=== PATIENT | male | born 1985 | race Two or more races ===

== ENCOUNTER 2021-06-07 21:46 | Emergency (ER) | payer OTHER ==
[~2021-06-07] VITALS: Ht 167.6 cm; Wt 68.0 kg
== END 2021-06-08 22:18 | disposition home or self-care (01) ==
LOC: ER 21:46
DX: R53.81 Other malaise (principal); Z20.822 Contact with and (suspected) exposure to COVID-19; F19.20 Other psychoactive substance dependence, uncomplicated

== ENCOUNTER → 2021-09-10 | Emergency (ER) | payer OTHER ==
[~2021-09-10] VITALS: Ht 167.6 cm; Wt 63.0 kg
== END | disposition home or self-care (01) ==
LOC: ER 12:33
DX: T25.122A Burn of first degree of left foot, initial encounter (principal); T25.121A Burn of first degree of right foot, initial encounter; X08.8XXA Exposure to other specified smoke, fire and flames, initial encounter; Y93.89 Activity, other specified; Y92.89 Other specified places as the place of occurrence of the external cause; M79.672 Pain in left foot; M79.671 Pain in right foot

== ENCOUNTER 2022-04-07 10:48 | Emergency (ER) | payer OTHER ==
[~2022-04-07] VITALS: Ht 165.1 cm; Wt 66.7 kg
== END 2022-04-07 13:43 | disposition left against medical advice (07) ==
LOC: ER 10:48
DX: Z53.21 Procedure and treatment not carried out due to patient leaving prior to being seen by health care provider (principal)

== ENCOUNTER 2023-07-07 14:56 | Inpatient (IN) | payer OTHER ==
[~2023-07-07] VITALS: Ht 170.2 cm; Wt 72.6 kg
[2023-07-07] MEDS ORDERED: KETOROLAC TROMETHAMINE 30 MG VIAL IV ONE (16:00)
[2023-07-07] MEDS ORDERED: 0.9 % SODIUM CHLORIDE 1,000 ML IV ONE ×2 (16:00→18:15)
[2023-07-07 16:52] LABS: HEMATOCRIT 38.8 % (39.0-48.0); HEMOGLOBIN 13.1 g/dL (13-16.00); MEAN CELL VOLUME 82.5 fL (80.0-100.00); MEAN CORPUSCULAR HEMOGLOBIN 27.9 pg (27.00-32.0); MEAN CORPUSCULAR HGB CONC 33.8 g/dl (32.0-36.0); PLATELET COUNT 338 K/uL (150-450); RED CELL DISTRIBUTION WIDTH 16.1 % (11.5-14.5)
[2023-07-07 17:27] LABS: BILIRUBIN TOTAL 1.24 mg/dL (0.3-1.2); CALCIUM 9.9 mg/dL (8.5-10.1); MAGNESIUM 2.7 mg/dL (1.8-2.4)
[2023-07-07 17:42] LABS: GLOBULINA 6.5 G/DL (2.4-3.5)
[2023-07-07 17:45] LABS: POTASSIUM 5.44 mEq/L (3.5-5.1)
[2023-07-07 17:46] LABS: CREATININE SERUM 4.63 mg/dL (0.70-1.30); PHOSPHOROUS 9.9 mg/dL (2.5-4.9)
[2023-07-07 17:47] LABS: CKMB 11.7 NG/ML (0.5-3.6); GFR 14.34; TOTAL PROTEIN 11.5 gm/dL (6.4-8.2)
[2023-07-07 18:43] LABS: URINE APPEARANCE Cloudy; URINE BACTERIA 74.3 uL (0.0-1933); URINE BILIRRUBIN Negative (NEGATIVE); URINE BLOOD Large; URINE COLOR Yellow; URINE EPITHELIAL CELLS 25.9 uL (0.0-38.8); URINE GLUCOSE Negative (NEGATIVE); URINE LEUKOCYTE Negative; URINE NITRATE Negative; URINE RBC 247.4 uL (0.0-20.8); URINE WBC 14.5 uL (0.0-23.2)
[2023-07-07 18:58] LABS: URINE CRYSTALS FEW /HPF; URINE MUCUS MODERATE; URINE PROTEIN 100 (NEGATIVE); URINE SPERM FEW
[2023-07-07 19:17] LABS: COCAINE NEGATIVE (NEGATIVE); METHADONE NEGATIVE (NEGATIVE); OPIATES NEGATIVE (NEGATIVE); THC ( Cannabinoids) NEGATIVE (NEGATIVE)
[2023-07-07] MEDS ORDERED: LORazepam 2 MG/ML VIAL IV PUSH ONE (19:45)
[2023-07-07] MEDS ORDERED: ACETAMINOPHEN 500 MG GEL..CAP PO PRN (20:00)
[2023-07-07] MEDS ORDERED: HALOPERIDOL LACTATE 5 MG/ML AMPUL IM ONE ×2 (20:00→20:15)
[2023-07-07] MEDS ORDERED: DIPHENHYDRAMINE HCL 50 MG/ML VIAL 1ML IV ONE ×2 (20:00→21:15)
[2023-07-07] MEDS ORDERED: 0.9 % SODIUM CHLORIDE 1,000 ML IV SCH (20:00)
[2023-07-07] MEDS ORDERED: ONDANSETRON HCL 4 MG in 0.9 % SODIUM CHLORIDE 50 ML IV PRN (20:00)
[2023-07-07] MEDS ORDERED: LORazepam 1 MG TABLET PO PRN (20:15)
[2023-07-07] MEDS ORDERED: DIPHENHYDRAMINE HCL 25 MG in 0.9 % SODIUM CHLORIDE 25 ML IV PRN (20:15)
[2023-07-07 20:32] LABS: COCAINE NEGATIVE (NEGATIVE); METHADONE NEGATIVE (NEGATIVE); OPIATES NEGATIVE (NEGATIVE); THC ( Cannabinoids) NEGATIVE (NEGATIVE)
[2023-07-07 21:01] LABS: INR 1.2; PARTIAL THROMBOPLASTIN TIME 29.5 SECONDS (22.0-34.0); PROTHROMBIN TIME 12.4 SECONDS (9.0-11.5)
[2023-07-08 07:05] LABS: TSH 0.487 uIU/mL (0.358-3.74)
[2023-07-08] MEDS ORDERED: FAMOTIDINE/PF 20 MG in 0.9 % SODIUM CHLORIDE 8 ML IV PUSH SCH (09:00)
[2023-07-09 12:54] LABS: ALBUMIN 3.5 gm/dL (3.4-5.0); BILIRUBIN TOTAL 0.95 mg/dL (0.3-1.2); CALCIUM 8.9 mg/dL (8.5-10.1); CREATININE SERUM 0.88 mg/dL (0.70-1.30); GFR 97.44; POTASSIUM 5.02 mEq/L (3.5-5.1); TOTAL PROTEIN 8.5 gm/dL (6.4-8.2)
[2023-07-10 05:39] LABS: CALCIUM 8.8 mg/dL (8.5-10.1); CREATININE SERUM 1.05 mg/dL (0.70-1.30); GFR 79.48; POTASSIUM 4.86 mEq/L (3.5-5.1)
== END 2023-07-10 14:28 | disposition home or self-care (01) | DRG 683 ==
LOC: ER 14:57 → ICU-2 20:45 → MEDI 07-08 12:41
PROVIDERS: General Practice; Internal Medicine; Nurse Practitioner Family; ADMIT Internal Medicine; ATTEND Internal Medicine
PROC: BW29ZZZ Computerized Tomography (CT Scan) of Head and Neck (ICD-10-PCS; principal; 2023-07-07)
PROC: BT4JZZZ Ultrasonography of Kidneys and Bladder (ICD-10-PCS; 2023-07-07)
PROC: B24BYZZ Ultrasonography of Heart with Aorta using Other Contrast (ICD-10-PCS; 2023-07-07)
PROC: 4A12X4Z Monitoring of Cardiac Electrical Activity, External Approach (ICD-10-PCS; 2023-07-08)
DX: N17.0 Acute kidney failure with tubular necrosis (principal); F15.921 Other stimulant use, unspecified with intoxication delirium; M62.82 Rhabdomyolysis; G25.9 Extrapyramidal and movement disorder, unspecified

== ENCOUNTER 2023-10-19 07:43 | Emergency (ER) | payer OTHER ==
[~2023-10-19] VITALS: Ht 167.6 cm; Wt 63.5 kg
[2023-10-19] MEDS ORDERED: DIPHENHYDRAMINE HCL 50 MG/ML VIAL 1ML IM STA (08:25)
[2023-10-19] MEDS ORDERED: DIPHENHYDRAMINE HCL 50 MG/ML VIAL 1ML ONE (08:29)
== END 2023-10-19 08:35 | disposition home or self-care (01) ==
LOC: ER 07:44
DX: R68.89 Other general symptoms and signs (principal)

== ENCOUNTER → 2023-10-30 | Emergency (ER) | payer OTHER ==
[~2023-10-30] VITALS: Ht 167.6 cm; Wt 63.5 kg
[~2023-10-30] MED LIST: BIKTARVY 30-121 EACH PO
== END | disposition left against medical advice (07) ==
LOC: ER 05:05
DX: Z53.21 Procedure and treatment not carried out due to patient leaving prior to being seen by health care provider (principal)